=== PATIENT | male | born 1985 | race Caucasian/White ===

== ENCOUNTER 2017-09-03 20:11 | Inpatient (IN) | payer OTHER ==
[2017-09-03] MEDS ORDERED: LORazepam 2 MG/ML INJ IV STA ×4 (20:35→23:24)
[2017-09-03 20:53] LABS: Basophils # (A) 0.2 k/uL (0-0.2); Basophils % (A) 1 %; Eosinophils # (A) 0.2 k/uL (0-0.7); Eosinophils % (A) 1 %; HCT 51.1 % (39.0-53.0); HGB 15.7 gm/dL (13.0-17.5); Hypochromasia Moderate; Lymphocytes # (A) 3.7 k/uL (1.0-4.8); Lymphocytes % (A) 19 %; MCH 28.7 pg (25.0-35.0); MCHC 30.6 g/dL (31.0-37.0); MCV 93.6 fL (80.0-100.0); Mean Platelet Volume 7.3; Monocytes # (A) 1.4 k/uL (0-1.0); Monocytes % (A) 7 %; Neutrophils # (A) 13.8 k/uL (1.3-7.7); Neutrophils % (A) 70 %; Platelet Count 423 k/uL (150-450); RBC 5.47 m/uL (4.30-5.90); RDW 14.1 % (11.5-15.5); WBC 19.8 k/uL (3.8-10.6)
[2017-09-03 21:02] LABS: Calcium 11.2 mg/dL (8.4-10.2); Potassium 5.6 mmol/L (3.5-5.1); Total Bilirubin 1.2 mg/dL (0.2-1.3); Total Protein 9.6 g/dL (6.3-8.2)
[2017-09-03 21:04] LABS: Amphetamine Screen,Urine Detected (NotDetected); Barbiturate Screen,Urine Not Detected (NotDetected); Benzodiazepines Screen,Urine Not Detected (NotDetected); Cocaine Screen,Urine Not Detected (NotDetected); Methadone Screen, Urine Not Detected (NotDetected); Opiate Screen,Urine Not Detected (NotDetected); Oxycodone Screen, Urine Not Detected (NotDetected); Phencyclidine Screen,Urine Not Detected (NotDetected); Tricyclic Antidepressant,Urine Not Detected (NotDetected); Urn Cannabinoid Scrn Detected (NotDetected)
--- NOTE | 2017-09-03 21:10 | ED ---
Psych HPI - General Source: EMS, RN notes reviewed Mode of arrival: EMS <Suly Kim - Last Filed: 09/03/17 21:47> <Ady Horan - Last Filed: 09/04/17 02:08> - General Chief Complaint: Psychiatric Symptoms Stated Complaint: Mental Health Time Seen by Provider: 09/03/17 20:13 - History of Present Illness Initial Comments: This is a 31-year-old male who presents to the emergency department for mental health evaluation. Patient was transported to the emergency department via EMS. Patient stated that he was smoking marijuana earlier this evening. He states that he became sweaty and had a syncopal episode. He states that he did not hit his head. He states that when he woke up he ran outside to a [place]. Patient was picked up by EMS in the field. Other than this history, patient is refusing to speak. He does have a history of methamphetamine use. (Suly Kim) - Related Data Home Medications Medication Instructions Recorded Confirmed No Known Home Medications 09/03/17 09/03/17 Allergies Allergy/AdvReac Type Severity Reaction Status Date / Time No Known Allergies Allergy Verified 09/03/17 20:31 Review of Systems ROS Other: All systems not noted in ROS Statement are negative. <Suly Kim - Last Filed: 09/03/17 21:47> ROS Other: All systems not noted in ROS Statement are negative. <Ady Horan - Last Filed: 09/04/17 02:08> ROS Statement: Those systems with pertinent positive or pertinent negative responses have been documented in the HPI. Past Medical History Past Medical History: No Reported History History of Any Multi-Drug Resistant Organisms: None Reported Past Surgical History: Adenoidectomy Past Anesthesia/Blood Transfusion Reactions: No Reported Reaction Past Psychological History: ADD/ADHD, Depression Smoking Status: Current every day smoker Past Alcohol Use History: None Reported Past Drug Use History: Marijuana, Methamphetamine - Past Family History Family Additional Family Medical History / Comment(s): Denies any history of CAD, or cancers, he denies any history of mental health illnesses <Suly Kim - Last Filed: 09/03/17 21:47> General Exam <Suly Kim - Last Filed: 09/03/17 21:47> <Ady Horan - Last Filed: 09/04/17 02:08> - General Exam Comments Initial Comments: General: Awake and alert, well-developed. Patient will not speak. He is in restraints on ED stretcher. HEENT: Head atraumatic, normocephalic. Pupils are dilated and sluggish. Extraocular movements intact. Oropharynx moist without erythema or exudate. Neck: Supple. Normal ROM. Cardiovascular: Tachycardia. Normal rhythm. No murmurs, rubs or gallops. Chest symmetrical. Respiratory: Lungs clear to auscultation bilaterally. No wheezes, rales or rhonchi. Normal respiratory effort with no use of accessory muscles. Abdomen: Soft, non-tender, non-distended. No rigidity, rebound or guarding. Normal bowel sounds in all 4 quadrants. Musculoskeletal: Normal ROM, no tenderness bilateral upper and lower extremities. No gross injuries are noted. Skin: [place], warm and dry without rashes or lesions. Neurological: Unable to assess neurological status. Psychiatric: Odd and bizarre behavior. Making catatonic motions with his body. Uncooperative and agitated. (Suly Kim) Vital Signs 09/03/17 09/03/17 09/03/17 20:12 21:16 21:48 Temperature 97.0 F L Pulse Rate 120 H 127 H 112 H Respiratory 18 18 Rate Blood Pressure 152/72 120/65 161/104 O2 Sat by Pulse 95 98 Oximetry 09/03/17 09/03/17 09/03/17 21:50 21:55 21:56 Temperature Pulse Rate 120 H 141 H Respiratory 18 Rate Blood Pressure 140/74 110/70 O2 Sat by Pulse 97 97 Oximetry 09/03/17 09/03/17 09/03/17 22:02 22:08 22:55 Temperature Pulse Rate 150 H 143 H 100 Respiratory 15 Rate Blood Pressure 126/70 116/73 O2 Sat by Pulse 97 Oximetry 09/03/17 09/04/17 23:37 00:25 Temperature Pulse Rate 120 H 89 Respiratory 16 18 Rate Blood Pressure 115/61 119/67 O2 Sat by Pulse 98 97 Oximetry Procedures - Restraint - Face to Face Restraint Occurrence 1 Patient's Immediate Situation: Endangers self safety, Endangers others' safety, Endangers staff safety, Violent behavior Patient's Reaction to the Intervention: Uncooperative, Angry, Aggressive, Combative, Resistive to care Patient's Medical & Behavioral Condition: Drowsy, Agitated, Bizarre behavior Need to Continue or Terminate Restraint or Seclusion: Continue Face to Face Eval of Restraint Date: 09/03/17 Face to Face Eval of Restraint Time: 21:12 <Suly Kim - Last Filed: 09/03/17 21:47> - Restraint - Face to Face Restraint Occurrence 2 Patient's Immediate Situation: Endangers self safety Patient's Reaction to the Intervention: Bizarre, Suspicious, Resistive to care Patient's Medical & Behavioral Condition: Confused Need to Continue or Terminate Restraint or Seclusion: Continue Face to Face Eval of Restraint Date: 09/04/17 Face to Face Eval of Restraint Time: 00:36 - Sepsis Sepsis Focused Exam #1 Time Sepsis Criteria Met: 21:00 Sepsis Focused Exam Date: 09/04/17 Sepsis Focused Exam Time: 01:00 Sepsis Focused Exam Complete: Yes Vital Signs & RN Notes Reviewed: Yes Capillary Refill: < 2 Seconds: Fingers Peripheral Pulses: Normal: Radial (L) Skin Color: Erythema Respiratory Exam: rhonchi Cardiovascular Exam: tachycardia (Rate approximately 124 exam) <Ady Horan - Last Filed: 09/04/17 02:08> - Restraint - Face to Face Restraint Occurrence 1 Patient's Immediate Situation - Comment: Patient became uncooperative and violent, pushing one of the nurses. He would not change into his gown and kept trying to leave. Required multiple people to control patient. (Suly Kim) Medical Decision Making - Lab Data Result diagrams: 09/03/17 20:45 09/03/17 20:45 <Suly Kim - Last Filed: 09/03/17 21:47> - Lab Data Result diagrams: 09/03/17 20:45 09/04/17 00:25 - EKG Data -: EKG Interpreted by Me EKG shows normal: sinus rhythm, axis (Rightward), intervals (Normal), QRS complexes (Normal), ST-T waves (T changes in the inferior leads concerning for possible ischemia.) Rate: tachycardia (Right proximal 137 bpm) <Ady Horan - Last Filed: 09/04/17 02:08> - Medical Decision Making I saw this patient in conjunction with the physician assistant corporate controller. I performed independent history and physical exam. Agree with case management. Additional history reveals that the patient states he has probably been awake for a couple of days now and he does admit to using. The patient is administered IV antibiotics, by the physician assistant corporate controller, as well as fluids. Repeat labs do show resolution of the lactic acidosis. Repeat clinical examination, shows that the patient's mental status is improving , he is becoming oriented and more appropriate. I note that following the antibiotics here, the patient did develop urticaria which resolved following antihistamines and steroid. (Ady Horan) - Lab Data Lab Results 09/03/17 09/03/17 09/03/17 Range/Units 20:43 20:43 20:45 WBC 19.8 H (3.8-10.6) k/uL RBC 5.47 (4.30-5.90) m/uL Hgb 15.7 (13.0-17.5) gm/dL Hct 51.1 (39.0-53.0) % MCV 93.6 (80.0-100.0) fL MCH 28.7 (25.0-35.0) pg MCHC 30.6 L (31.0-37.0) g/dL RDW 14.1 (11.5-15.5) % Plt Count 423 (150-450) k/uL Neutrophils % 70 % Lymphocytes % 19 % Monocytes % 7 % Eosinophils % 1 % Basophils % 1 % Neutrophils # 13.8 H (1.3-7.7) k/uL Lymphocytes # 3.7 (1.0-4.8) k/uL Monocytes # 1.4 H (0-1.0) k/uL Eosinophils # 0.2 (0-0.7) k/uL Basophils # 0.2 (0-0.2) k/uL Hypochromasia Moderate Sodium (137-145) mmol/L Potassium (3.5-5.1) mmol/L Chloride (98-107) mmol/L Carbon Dioxide (22-30) mmol/L Anion Gap mmol/L BUN (9-20) mg/dL Creatinine (0.66-1.25) mg/dL Est GFR (CKD-EPI)AfAm (>60 ml/min/1.73 sqM) Est GFR (CKD-EPI)NonAf (>60 ml/min/1.73 sqM) Glucose (74-99) mg/dL POC Glucose (mg/dL) (75-99) mg/dL POC Glu Nurse Practitioner Per Diem ID Lactic Ac Sepsis Rflx Plasma Lactic Acid Lloyd (0.7-2.0) mmol/L Calcium (8.4-10.2) mg/dL Total Bilirubin (0.2-1.3) mg/dL AST (17-59) U/L ALT (21-72) U/L Alkaline Phosphatase (38-126) U/L Creatine Kinase (55-170) U/L CK-MB (CK-2) (0.0-2.4) ng/mL Total Protein (6.3-8.2) g/dL Albumin (3.5-5.0) g/dL Urine Color Yellow Urine Appearance Cloudy (Clear) Urine pH 5.5 (5.0-8.0) Ur Specific [place] 1.027 (1.001-1.035) Urine Protein 1+ H (Negative) Urine Glucose (UA) 3+ H (Negative) Urine Ketones 1+ H (Negative) Urine Blood Negative (Negative) Urine Nitrite Negative (Negative) Urine Bilirubin Negative (Negative) Urine Urobilinogen 6.0 (<2.0) mg/dL Ur Leukocyte Esterase Moderate H (Negative) Urine RBC 4 (0-5) /hpf Urine WBC 29 H (0-5) /hpf Urine Bacteria Occasional H (None) /hpf Hyaline Casts 47 H (0-2) /lpf Urine Mucus Many H (None) /hpf Salicylates mg/dL Urine Opiates Screen Not Detected (NotDetected) Ur Oxycodone Screen Not Detected (NotDetected) Urine Methadone Screen Not Detected (NotDetected) Ur Propoxyphene Screen Not Detected (NotDetected) Acetaminophen ug/mL Ur Barbiturates Screen Not Detected (NotDetected) U Tricyclic Antidepress Not Detected (NotDetected) Ur Phencyclidine Scrn Not Detected (NotDetected) Ur Amphetamines Screen Detected H (NotDetected) U Methamphetamines Scrn Detected H (NotDetected) U Benzodiazepines Scrn Not Detected (NotDetected) Urine Cocaine Screen Not Detected (NotDetected) U Marijuana (THC) Screen Detected H (NotDetected) Serum Alcohol mg/dL 09/03/17 09/03/17 09/03/17 Range/Units 20:45 21:20 21:20 WBC (3.8-10.6) k/uL RBC (4.30-5.90) m/uL Hgb (13.0-17.5) gm/dL Hct (39.0-53.0) % MCV (80.0-100.0) fL MCH (25.0-35.0) pg MCHC (31.0-37.0) g/dL RDW (11.5-15.5) % Plt Count (150-450) k/uL Neutrophils % % Lymphocytes % % Monocytes % % Eosinophils % % Basophils % % Neutrophils # (1.3-7.7) k/uL Lymphocytes # (1.0-4.8) k/uL Monocytes # (0-1.0) k/uL Eosinophils # (0-0.7) k/uL Basophils # (0-0.2) k/uL Hypochromasia Sodium 150 H (137-145) mmol/L Potassium 5.6 H (3.5-5.1) mmol/L Chloride 96 L (98-107) mmol/L Carbon Dioxide 9 L* (22-30) mmol/L Anion Gap 45 mmol/L BUN 24 H (9-20) mg/dL Creatinine 1.92 H (0.66-1.25) mg/dL Est GFR (CKD-EPI)AfAm 52 (>60 ml/min/1.73 sqM) Est GFR (CKD-EPI)NonAf 45 (>60 ml/min/1.73 sqM) Glucose 234 H (74-99) mg/dL POC Glucose (mg/dL) (75-99) mg/dL POC Glu Nurse Practitioner Per Diem ID Lactic Ac Sepsis Rflx Plasma Lactic Acid Lloyd (0.7-2.0) mmol/L Calcium 11.2 H (8.4-10.2) mg/dL Total Bilirubin 1.2 (0.2-1.3) mg/dL AST 27 (17-59) U/L ALT 18 L (21-72) U/L Alkaline Phosphatase 98 (38-126) U/L Creatine Kinase 424 H (55-170) U/L CK-MB (CK-2) 1.5 (0.0-2.4) ng/mL Total Protein 9.6 H (6.3-8.2) g/dL Albumin >6.0 H (3.5-5.0) g/dL Urine Color Urine Appearance (Clear) Urine pH (5.0-8.0) Ur Specific [place] (1.001-1.035) Urine Protein (Negative) Urine Glucose (UA) (Negative) Urine Ketones (Negative) Urine Blood (Negative) Urine Nitrite (Negative) Urine Bilirubin (Negative) Urine Urobilinogen (<2.0) mg/dL Ur Leukocyte Esterase (Negative) Urine RBC (0-5) /hpf Urine WBC (0-5) /hpf Urine Bacteria (None) /hpf Hyaline Casts (0-2) /lpf Urine Mucus (None) /hpf Salicylates <1.0 mg/dL Urine Opiates Screen (NotDetected) Ur Oxycodone Screen (NotDetected) Urine Methadone Screen (NotDetected) Ur Propoxyphene Screen (NotDetected) Acetaminophen <10.0 ug/mL Ur Barbiturates Screen (NotDetected) U Tricyclic Antidepress (NotDetected) Ur Phencyclidine Scrn (NotDetected) Ur Amphetamines Screen (NotDetected) U Methamphetamines Scrn (NotDetected) U Benzodiazepines Scrn (NotDetected) Urine Cocaine Screen (NotDetected) U Marijuana (THC) Screen (NotDetected) Serum Alcohol <10 mg/dL 09/03/17 09/03/17 09/04/17 Range/Units 21:20 21:56 00:25 WBC (3.8-10.6) k/uL RBC (4.30-5.90) m/uL Hgb (13.0-17.5) gm/dL Hct (39.0-53.0) % MCV (80.0-100.0) fL MCH (25.0-35.0) pg MCHC (31.0-37.0) g/dL RDW (11.5-15.5) % Plt Count (150-450) k/uL Neutrophils % % Lymphocytes % % Monocytes % % Eosinophils % % Basophils % % Neutrophils # (1.3-7.7) k/uL Lymphocytes # (1.0-4.8) k/uL Monocytes # (0-1.0) k/uL Eosinophils # (0-0.7) k/uL Basophils # (0-0.2) k/uL Hypochromasia Sodium 137 (137-145) mmol/L Potassium 3.3 L (3.5-5.1) mmol/L Chloride 106 (98-107) mmol/L Carbon Dioxide 22 (22-30) mmol/L Anion Gap 9 mmol/L BUN 23 H (9-20) mg/dL Creatinine 1.10 (0.66-1.25) mg/dL Est GFR (CKD-EPI)AfAm >90 (>60 ml/min/1.73 sqM) Est GFR (CKD-EPI)NonAf 88 (>60 ml/min/1.73 sqM) Glucose 62 L (74-99) mg/dL POC Glucose (mg/dL) (75-99) mg/dL POC Glu Nurse Practitioner Per Diem ID Lactic Ac Sepsis Rflx Y Plasma Lactic Acid Lloyd 19.0 H* (0.7-2.0) mmol/L Calcium 7.9 L (8.4-10.2) mg/dL Total Bilirubin (0.2-1.3) mg/dL AST (17-59) U/L ALT (21-72) U/L Alkaline Phosphatase (38-126) U/L Creatine Kinase (55-170) U/L CK-MB (CK-2) (0.0-2.4) ng/mL Total Protein (6.3-8.2) g/dL Albumin (3.5-5.0) g/dL Urine Color Urine Appearance (Clear) Urine pH (5.0-8.0) Ur Specific [place] (1.001-1.035) Urine Protein (Negative) Urine Glucose (UA) (Negative) Urine Ketones (Negative) Urine Blood (Negative) Urine Nitrite (Negative) Urine Bilirubin (Negative) Urine Urobilinogen (<2.0) mg/dL Ur Leukocyte Esterase (Negative) Urine RBC (0-5) /hpf Urine WBC (0-5) /hpf Urine Bacteria (None) /hpf Hyaline Casts (0-2) /lpf Urine Mucus (None) /hpf Salicylates mg/dL Urine Opiates Screen (NotDetected) Ur Oxycodone Screen (NotDetected) Urine Methadone Screen (NotDetected) Ur Propoxyphene Screen (NotDetected) Acetaminophen ug/mL Ur Barbiturates Screen (NotDetected) U Tricyclic Antidepress (NotDetected) Ur Phencyclidine Scrn (NotDetected) Ur Amphetamines Screen (NotDetected) U Methamphetamines Scrn (NotDetected) U Benzodiazepines Scrn (NotDetected) Urine Cocaine Screen (NotDetected) U Marijuana (THC) Screen (NotDetected) Serum Alcohol mg/dL 09/04/17 09/04/17 Range/Units 00:25 01:15 WBC (3.8-10.6) k/uL RBC (4.30-5.90) m/uL Hgb (13.0-17.5) gm/dL Hct (39.0-53.0) % MCV (80.0-100.0) fL MCH (25.0-35.0) pg MCHC (31.0-37.0) g/dL RDW (11.5-15.5) % Plt Count (150-450) k/uL Neutrophils % % Lymphocytes % % Monocytes % % Eosinophils % % Basophils % % Neutrophils # (1.3-7.7) k/uL Lymphocytes # (1.0-4.8) k/uL Monocytes # (0-1.0) k/uL Eosinophils # (0-0.7) k/uL Basophils # (0-0.2) k/uL Hypochromasia Sodium (137-145) mmol/L Potassium (3.5-5.1) mmol/L Chloride (98-107) mmol/L Carbon Dioxide (22-30) mmol/L Anion Gap mmol/L BUN (9-20) mg/dL Creatinine (0.66-1.25) mg/dL Est GFR (CKD-EPI)AfAm (>60 ml/min/1.73 sqM) Est GFR (CKD-EPI)NonAf (>60 ml/min/1.73 sqM) Glucose (74-99) mg/dL POC Glucose (mg/dL) 68 L (75-99) mg/dL POC Glu Nurse Practitioner Per Diem ID Cate Reynoso Lactic Ac Sepsis Rflx Plasma Lactic Acid Lloyd 0.9 (0.7-2.0) mmol/L Calcium (8.4-10.2) mg/dL Total Bilirubin (0.2-1.3) mg/dL AST (17-59) U/L ALT (21-72) U/L Alkaline Phosphatase (38-126) U/L Creatine Kinase (55-170) U/L CK-MB (CK-2) (0.0-2.4) ng/mL Total Protein (6.3-8.2) g/dL Albumin (3.5-5.0) g/dL Urine Color Urine Appearance (Clear) Urine pH (5.0-8.0) Ur Specific [place] (1.001-1.035) Urine Protein (Negative) Urine Glucose (UA) (Negative) Urine Ketones (Negative) Urine Blood (Negative) Urine Nitrite (Negative) Urine Bilirubin (Negative) Urine Urobilinogen (<2.0) mg/dL Ur Leukocyte Esterase (Negative) Urine RBC (0-5) /hpf Urine WBC (0-5) /hpf Urine Bacteria (None) /hpf Hyaline Casts (0-2) /lpf Urine Mucus (None) /hpf Salicylates mg/dL Urine Opiates Screen (NotDetected) Ur Oxycodone Screen (NotDetected) Urine Methadone Screen (NotDetected) Ur Propoxyphene Screen (NotDetected) Acetaminophen ug/mL Ur Barbiturates Screen (NotDetected) U Tricyclic Antidepress (NotDetected) Ur Phencyclidine Scrn (NotDetected) Ur Amphetamines Screen (NotDetected) U Methamphetamines Scrn (NotDetected) U Benzodiazepines Scrn (NotDetected) Urine Cocaine Screen (NotDetected) U Marijuana (THC) Screen (NotDetected) Serum Alcohol mg/dL Critical Care Time Critical Care Time: Yes (35 minutes) <Ady Horan - Last Filed: 09/04/17 02:08> Disposition <Suly Kim - Last Filed: 09/03/17 21:47> Is patient prescribed a controlled substance at d/c from ED?: No <Ady Horan - Last Filed: 09/04/17 02:08> Clinical Impression: Amphetamine abuse, Acute renal failure, Lactic acidosis, Dehydration Disposition: ADMITTED IP TO THIS HOSP Condition: Serious Referrals: None,Stated [Primary Care Provider] - 1-2 days
[2017-09-03] MEDS: SODIUM CHLORIDE 0.9% 1,000 ML IV STA ×2 (21:34→22:13)
[2017-09-03 21:41] LABS: Appearance,Urine Cloudy (Clear); Bacteria,Urine Occasional /hpf; Bilirubin,Urine Negative (Negative); Blood,Urine Negative (Negative); Color,Urine Yellow; Glucose,Urine (UA) 3+ (Negative); Hyaline Casts,Urine 47 /lpf (0-2); Ketones,Urine 1+ (Negative); Leukocyte Esterase,Urine Moderate (Negative); Mucus,Urine Many /hpf; Nitrite,Urine Negative (Negative); PH, Urine 5.5 (5.0-8.0); Protein,Urine 1+ (Negative); RBC,Urine 4 /hpf (0-5); Specific Gravity,Urine 1.027 (1.001-1.035); WBC,Urine 29 /hpf (0-5)
[2017-09-03 21:42] LABS: Acetaminophen <10.0 ug/mL; Alcohol <10 mg/dL; Creatine Kinase 424 U/L (55-170); Salicylate <1.0 mg/dL
[2017-09-03] MEDS ORDERED: LEVOFLOXACIN 750MG-D5W PMX 750 MG in DEXTROSE/WATER 1 150ML.BAG IVPB STA (21:51)
[2017-09-03] MEDS ORDERED: SODIUM CHLORIDE 0.9% 2,000 ML IV ONE (21:58)
--- NOTE | 2017-09-03 23:02 | XR ---
EXAMINATION TYPE: XR chest 1V portable DATE OF EXAM: 09/03/2017 COMPARISON: NONE HISTORY: Chest pain TECHNIQUE: Single frontal view of the chest is obtained. FINDINGS: Supine view shows no heart failure nor confluent pneumonic infiltrate. There is mild coars ening of interstitial markings. There is no pleural effusion. There are chest leads. Bony thorax is i ntact. There is probably some interstitial infiltrate around the left pulmonary hilum. Impression Mild left perihilar interstitial infiltrate. Normal heart.
[2017-09-03] MEDS ORDERED: SODIUM CHLORIDE 0.9% 1,000 ML IV ONE (23:25)
[2017-09-03] MEDS ORDERED: methylPREDNISolone SOD SUCCI 125 MG/2 ML VIAL IV STA (23:51)
[2017-09-03] MEDS ORDERED: FAMOTIDINE 20 MG/2 ML VIAL IV STA (23:51)
[2017-09-03] MEDS ORDERED: diphenhydrAMINE 50 MG/ML 1 ML VIAL IVP STA (23:51)
[2017-09-04 00:48] LABS: Anion Gap 9 mmol/L; Blood Urea Nitrogen 23 mg/dL (9-20); Calcium 7.9 mg/dL (8.4-10.2); Carbon Dioxide 22 mmol/L (22-30); Chloride 106 mmol/L (98-107); Glucose 62 mg/dL (74-99); Potassium 3.3 mmol/L (3.5-5.1); Sodium 137 mmol/L (137-145)
[2017-09-04 01:19] LABS: Glucose,Whole Blood 68 mg/dL (75-99)
[2017-09-04] MEDS ORDERED: DEXTROSE 50%-WATER 50 ML SYRINGE IVP STA (01:32)
[2017-09-04] MEDS ORDERED: NALOXONE 0.4 MG/ML 1 ML VIAL IV PRN (01:59)
[2017-09-04 02:23] LABS: Glucose,Whole Blood 121 mg/dL (75-99)
[2017-09-04] MEDS: SODIUM CHLORIDE 0.9% 1,000 ML IV SCH ×3 (07:30→17:42)
[2017-09-04] MEDS: FAMOTIDINE 20 MG TAB PO SCH ×2 (08:10→20:17)
[2017-09-04] MEDS ORDERED: POTASSIUM CHLORIDE ER 20 MEQ TAB.ER PO STA (12:03)
[2017-09-04 15:55] LABS: Albumin 6.3 g/dL (3.5-5.0)
--- NOTE | 2017-09-04 16:27 | P.HPIM ---
History of Present Illness 31-year-old gentleman is admitted with overdose of amphotericin with amphetamines, patient was brought in for by EMS after they picked him up and the cons reluctantly patient was quite dehydrated and had a syncopal episode. When patient came in his the lactic acid is highly elevated to 19 of around 0.9. Patient urine drug screen is positive for amphetamines,methamphetamines and marijuana. Patient is a hyper with tangentiality and still does have significant effects of ecstasy he may have used. Patient does have significant clinical signs of amphetamine overdose. With IV fluid resuscitation patient dehydration resolved. Patient dehydration and syncope is secondary to amphetamine methamphetamines use of ecstasy use. Patient admits that he did use his brothers pills. Although he is unable to provide me good history. Because of the tangentiality of thought. I request a psychiatric to evaluate the patient. Patient is expected to have a fracture of ecstasy for about 3-4 days longest lasting depending on the dose he use can last up to a week. We have to prevent dehydration. The patient has family to take him home patient will be discharged in the family will be instructed to hydrate him at home. Although patient cannot be discharged to go home by himself. We're able to find the family members patient will be discharged today if not patient will stay in the hospital and will be transferred out of [facility] in meantime will get the psychiatric opinion as well. Patient has some infiltrate in the hilar area may have some aspiration which is mostly chemical because of which I' ll not use any antibiotics patient was given a dose of levofloxacin patient is only having mild cough. Review of Systems Except those mentioned above patient all other systems are negative. Most of systems I'm unable to obtain because of his the clinical condition. Past Medical History Past Medical History: No Reported History History of Any Multi-Drug Resistant Organisms: None Reported Past Surgical History: Adenoidectomy Past Anesthesia/Blood Transfusion Reactions: No Reported Reaction Past Psychological History: ADD/ADHD, Depression Smoking Status: Current every day smoker Past Alcohol Use History: None Reported Past Drug Use History: Marijuana, Methamphetamine - Past Family History Family Additional Family Medical History / Comment(s): Denies any history of CAD, or cancers, he denies any history of mental health illnesses Medications and Allergies Home Medications Medication Instructions Recorded Confirmed Type No Known Home Medications 07/02/18 07/02/18 History Allergies Allergy/AdvReac Type Severity Reaction Status Date / Time No Known Allergies Allergy Verified 09/03/17 20:31 Physical Exam Vitals: Vital Signs Temp Pulse Pulse Resp BP BP Pulse Ox 09/04/17 12:00 96.7 F L 98 16 127/61 100 09/04/17 08:05 97.7 F 77 16 123/77 98 09/04/17 04:00 96.9 F L 97 14 137/87 98 09/04/17 02:50 96.8 F L 87 14 137/88 99 09/04/17 02:15 73 112/70 98 09/04/17 01:25 80 16 121/64 96 09/04/17 00:25 89 18 119/67 97 09/03/17 23:37 120 H 16 115/61 98 09/03/17 22:55 100 15 116/73 97 09/03/17 22:08 143 H 126/70 09/03/17 22:02 150 H 09/03/17 21:56 141 H 97 09/03/17 21:55 120 H 18 110/70 97 09/03/17 21:50 140/74 09/03/17 21:48 112 H 161/104 09/03/17 21:16 127 H 18 120/65 98 09/03/17 20:12 97.0 F L 120 H 18 152/72 95 Intake and Output 09/04/17 09/04/17 09/04/17 06:59 14:59 22:59 Intake Total 1240 Balance 1240 Intake: Intake, IV Titration 1000 Amount Sodium Chloride 0.9% 1, 1000 000 ml @ 125 mls/hr IV . Q8H [facility] Rx#:[id number] Oral 240 Other: # Voids 3 Weight 73.5 kg PHYSICAL EXAMINATION: GENERAL: The patient is alert and oriented x3, not in any acute distress. Well developed, well nourished. Patient is hyperactive does have tangentiality secondary to extensive overdose HEENT: Pupils are round and equally reacting to light. EOMI. No scleral icterus. No conjunctival pallor. Normocephalic, atraumatic. No pharyngeal erythema. No thyromegaly. CARDIOVASCULAR: S1 and S2 present. No murmurs, rubs, or gallops. PULMONARY: Chest is clear to auscultation, no wheezing or crackles. ABDOMEN: Soft, nontender, nondistended, normoactive bowel sounds. No palpable organomegaly. MUSCULOSKELETAL: No joint swelling or deformity. EXTREMITIES: No cyanosis, clubbing, or pedal edema. NEUROLOGICAL: Gross neurological examination did not reveal any focal deficits. SKIN: No rashes. Results CBC & Chem 7: 09/03/17 20:45 09/04/17 00:25 Labs: Abnormal Lab Results - Last 24 Hours (Table) 09/03/17 09/03/17 09/03/17 Range/Units 20:43 20:43 20:45 WBC 19.8 H (3.8-10.6) k/uL MCHC 30.6 L (31.0-37.0) g/dL Neutrophils # 13.8 H (1.3-7.7) k/uL Monocytes # 1.4 H (0-1.0) k/uL Sodium (137-145) mmol/L Potassium (3.5-5.1) mmol/L Chloride (98-107) mmol/L Carbon Dioxide (22-30) mmol/L BUN (9-20) mg/dL Creatinine (0.66-1.25) mg/dL Glucose (74-99) mg/dL POC Glucose (mg/dL) (75-99) mg/dL Plasma Lactic Acid Lloyd (0.7-2.0) mmol/L Calcium (8.4-10.2) mg/dL ALT (21-72) U/L Creatine Kinase (55-170) U/L Total Protein (6.3-8.2) g/dL Albumin (3.5-5.0) g/dL Urine Protein 1+ H (Negative) Urine Glucose (UA) 3+ H (Negative) Urine Ketones 1+ H (Negative) Ur Leukocyte Esterase Moderate H (Negative) Urine WBC 29 H (0-5) /hpf Urine Bacteria Occasional H (None) /hpf Hyaline Casts 47 H (0-2) /lpf Urine Mucus Many H (None) /hpf Ur Amphetamines Screen Detected H (NotDetected) U Methamphetamines Scrn Detected H (NotDetected) U Marijuana (THC) Screen Detected H (NotDetected) 09/03/17 09/03/17 09/03/17 Range/Units 20:45 21:20 21:20 WBC (3.8-10.6) k/uL MCHC (31.0-37.0) g/dL Neutrophils # (1.3-7.7) k/uL Monocytes # (0-1.0) k/uL Sodium 150 H (137-145) mmol/L Potassium 5.6 H (3.5-5.1) mmol/L Chloride 96 L (98-107) mmol/L Carbon Dioxide 9 L* (22-30) mmol/L BUN 24 H (9-20) mg/dL Creatinine 1.92 H (0.66-1.25) mg/dL Glucose 234 H (74-99) mg/dL POC Glucose (mg/dL) (75-99) mg/dL Plasma Lactic Acid Lloyd 19.0 H* (0.7-2.0) mmol/L Calcium 11.2 H (8.4-10.2) mg/dL ALT 18 L (21-72) U/L Creatine Kinase 424 H (55-170) U/L Total Protein 9.6 H (6.3-8.2) g/dL Albumin 6.3 H (3.5-5.0) g/dL Urine Protein (Negative) Urine Glucose (UA) (Negative) Urine Ketones (Negative) Ur Leukocyte Esterase (Negative) Urine WBC (0-5) /hpf Urine Bacteria (None) /hpf Hyaline Casts (0-2) /lpf Urine Mucus (None) /hpf Ur Amphetamines Screen (NotDetected) U Methamphetamines Scrn (NotDetected) U Marijuana (THC) Screen (NotDetected) 09/04/17 09/04/17 09/04/17 Range/Units 00:25 01:15 02:22 WBC (3.8-10.6) k/uL MCHC (31.0-37.0) g/dL Neutrophils # (1.3-7.7) k/uL Monocytes # (0-1.0) k/uL Sodium (137-145) mmol/L Potassium 3.3 L (3.5-5.1) mmol/L Chloride (98-107) mmol/L Carbon Dioxide (22-30) mmol/L BUN 23 H (9-20) mg/dL Creatinine (0.66-1.25) mg/dL Glucose 62 L (74-99) mg/dL POC Glucose (mg/dL) 68 L 121 H (75-99) mg/dL Plasma Lactic Acid Lloyd (0.7-2.0) mmol/L Calcium 7.9 L (8.4-10.2) mg/dL ALT (21-72) U/L Creatine Kinase (55-170) U/L Total Protein (6.3-8.2) g/dL Albumin (3.5-5.0) g/dL Urine Protein (Negative) Urine Glucose (UA) (Negative) Urine Ketones (Negative) Ur Leukocyte Esterase (Negative) Urine WBC (0-5) /hpf Urine Bacteria (None) /hpf Hyaline Casts (0-2) /lpf Urine Mucus (None) /hpf Ur Amphetamines Screen (NotDetected) U Methamphetamines Scrn (NotDetected) U Marijuana (THC) Screen (NotDetected) Assessment and Plan Plan: -Lactic acidosis secondary to severe intra-volume depletion and dehydration which can happen with methamphetamine and amphetamine overdose and extensive overdose patient was fluid resuscitated lactic acid has come down. -Hypokalemia secondary to natriuresis will be supplemented -Leukocytosis reactive -Possible aspiration secondary to drug overdose it's mostly chemical aspiration because of which I'll not start him on any antibiotics although patient's dental hygiene is extremely poor patient is definitely high risk for aspiration bacterial pneumonitis. I'm not using any antibiotics because the chest x-ray findings are not that impressive -Amphetamine overdose, marijuana overdose: Counseling was provided. -Nicotine abuse: Counseling was provided
[2017-09-04] MEDS: NICOTINE 21MG/24HR PATCH TRANSDERM SCH (18:39)
[2017-09-05] MEDS: SODIUM CHLORIDE 0.9% 1,000 ML IV SCH ×2 (05:25→08:44)
[2017-09-05 05:54] VITALS: BP 136/88; PULSE 79; RESP 18; TEMP 97.1
[2017-09-05 07:03] LABS: Anion Gap 7 mmol/L; Basophils # (A) 0.1 k/uL (0-0.2); Basophils % (A) 1 %; Blood Urea Nitrogen 17 mg/dL (9-20); Calcium 8.2 mg/dL (8.4-10.2); Carbon Dioxide 26 mmol/L (22-30); Chloride 110 mmol/L (98-107); Eosinophils # (A) 0.2 k/uL (0-0.7); Eosinophils % (A) 3 %; Glucose 95 mg/dL (74-99); HCT 36.5 % (39.0-53.0); Lymphocytes # (A) 2.8 k/uL (1.0-4.8); Lymphocytes % (A) 36 %; MCH 28.9 pg (25.0-35.0); MCHC 32.7 g/dL (31.0-37.0); Mean Platelet Volume 6.6; Monocytes # (A) 0.6 k/uL (0-1.0); Monocytes % (A) 7 %; Neutrophils # (A) 3.9 k/uL (1.3-7.7); Neutrophils % (A) 51 %; Platelet Count 272 k/uL (150-450); Potassium 4.2 mmol/L (3.5-5.1); RBC 4.14 m/uL (4.30-5.90); RDW 14.5 % (11.5-15.5); Sodium 143 mmol/L (137-145); WBC 7.7 k/uL (3.8-10.6)
[2017-09-05 07:04] LABS: MCV 88.3 fL (80.0-100.0)
--- NOTE | 2017-09-05 07:35 | XR ---
EXAMINATION TYPE: XR chest 2V DATE OF EXAM: 09/05/2017 COMPARISON: Prior portable x-ray dated 09/03/2017 at 10:45 PM HISTORY: Pneumonia TECHNIQUE: Frontal and lateral views of the chest are obtained. FINDINGS: Interval resolution of the perihilar infiltrates as compared to the prior study. Scapularis are obscuring the upper lung foster. No pneumothorax. No evidence of pleural effusions. IMPRESSION: Interval resolution of the perihilar infiltrates as compared to the prior study.
[2017-09-05] MEDS: NICOTINE 21MG/24HR PATCH TRANSDERM SCH (08:09)
[2017-09-05] MEDS: FAMOTIDINE 20 MG TAB PO SCH (08:09)
--- NOTE | 2017-09-05 10:32 | P.DS ---
Providers Date of admission: 09/04/17 02:03 Attending physician: Eamon Enamorado Primary care physician: Stated None Hospital Course: Patient was admitted secondary to overdose on methamphetamines and/or ecstasy. Patient is much more appropriate today. Patient will be discharged today. Patient was initially given antibiotics for gram infiltrate in the lung which is not impressive I do not believe patient has aspiration pneumonia at this point of time patient will not require any antibiotics at this point of time extensive counseling regarding his drug use was provided and patient was severely dehydrated leading to lactic acidosis upon admission which resolved. Patient doesn't have any more tangentiality flight of ideas at this time. PHYSICAL EXAMINATION: GENERAL: The patient is alert and oriented x3, not in any acute distress. Well developed, well nourished. HEENT: Pupils are round and equally reacting to light. EOMI. No scleral icterus. No conjunctival pallor. Normocephalic, atraumatic. No pharyngeal erythema. No thyromegaly. His dental hygiene is poor CARDIOVASCULAR: S1 and S2 present. No murmurs, rubs, or gallops. PULMONARY: Chest is clear to auscultation, no wheezing or crackles. ABDOMEN: Soft, nontender, nondistended, normoactive bowel sounds. No palpable organomegaly. MUSCULOSKELETAL: No joint swelling or deformity. EXTREMITIES: No cyanosis, clubbing, or pedal edema. NEUROLOGICAL: Gross neurological examination did not reveal any focal deficits. SKIN: No rashes. Assessment and Plan Plan: -Lactic acidosis secondary to severe intra-volume depletion and dehydration secondary to methamphetamine and amphetamine overdose lactic acidosis resolved now -Hypokalemia secondary to natriuresis, improved with supplementation -Leukocytosis reactive, resolved now -Possible aspiration secondary to drug overdose it's mostly chemical aspiration which is mild and will not require any antibiotics and chest x-ray is not quite impressive for pneumonia. Patient clinical signs doesn't indicate patient has pneumonia -Amphetamine overdose, marijuana overdose: Counseling was provided. -Nicotine abuse: Counseling was provided Patient Condition at Discharge: Serious Plan - Discharge Summary New Discharge Prescriptions: No Action No Known Home Medications Discharge Medication List No Known Home Medications 09/03/17 [History] Follow up Appointment(s)/Referral(s): None,Stated [Primary Care Provider] - 1-2 days Discharge Disposition: HOME SELF-CARE
== END 2017-09-05 12:07 | disposition home or self-care (01) | DRG 918 ==
LOC: EC 20:11 → 6SEL 09-04 02:03 → 5MS5E 09-04 20:52
PROVIDERS: ADMIT Internal Medicine; ATTEND Internal Medicine
DX: T43.621A Poisoning by amphetamines, accidental (unintentional), initial encounter (principal); N17.9 Acute kidney failure, unspecified; E87.2 Acidosis; T40.7X1A Poisoning by cannabis (derivatives), accidental (unintentional), initial encounter; F12.90 Cannabis use, unspecified, uncomplicated; F17.200 Nicotine dependence, unspecified, uncomplicated; E86.0 Dehydration; E87.6 Hypokalemia; F32.9 Major depressive disorder, single episode, unspecified; F90.9 Attention-deficit hyperactivity disorder, unspecified type; Z71.6 Tobacco abuse counseling; Z71.51 Drug abuse counseling and surveillance of drug abuser
CPT/HCPCS: 36415; 71045; 71046; 80048; 80053; 80306; 80320; 81001; 82550; 82553; 83520; 83605; 85025; 87040; 93005; 96361; 96365; 96375; 96376; 99291